=== PATIENT | male | born 1985 | race Caucasian/White ===

== ENCOUNTER 2021-06-18 16:21 | Emergency (ER) | payer SELFPAY ==
[2021-06-18] MEDS ORDERED: Dicyclomine 10 MG CAP ONE ×2 (17:29→17:30)
[2021-06-18] MEDS ORDERED: Diphenoxylate HCl/Atropine Tablet ONE (17:29)
== END 2021-06-18 17:45 | disposition home or self-care (01) ==
LOC: MADERS 16:21
DX: R19.7 Diarrhea, unspecified (principal); I10 Essential (primary) hypertension; F17.210 Nicotine dependence, cigarettes, uncomplicated
CPT/HCPCS: 99283

== ENCOUNTER 2021-06-22 07:54 | Emergency (ER) | payer SELFPAY | END 2021-06-22 08:44 | disposition home or self-care (01) | LOC: MADERS 07:54 | DX: R10.9 Unspecified abdominal pain (principal); I10 Essential (primary) hypertension; F17.290 Nicotine dependence, other tobacco product, uncomplicated; R11.10 Vomiting, unspecified; Z79.899 Other long term (current) drug therapy | CPT/HCPCS: 99283 ==

== ENCOUNTER 2022-08-06 17:21 | Emergency (ER) | payer SELFPAY | END 2022-08-06 18:50 | disposition short-term general hospital (02) | LOC: MADERS 17:21 | DX: S76.919A Strain of unspecified muscles, fascia and tendons at thigh level, unspecified thigh, initial encounter (principal); S30.22XA Contusion of scrotum and testes, initial encounter; I10 Essential (primary) hypertension; X50.0XXA Overexertion from strenuous movement or load, initial encounter | CPT/HCPCS: 99284 ==

== ENCOUNTER 2022-09-14 12:42 | Emergency (ER) | payer BC, SELFPAY ==
[2022-09-14] MEDS ORDERED: Albuterol 200 PUFF (6.7GM INHALER) ONE (13:31)
== END 2022-09-14 14:04 | disposition home or self-care (01) ==
LOC: MADERS 12:42
DX: J06.9 Acute upper respiratory infection, unspecified (principal); Z20.822 Contact with and (suspected) exposure to COVID-19; I10 Essential (primary) hypertension; F17.290 Nicotine dependence, other tobacco product, uncomplicated
CPT/HCPCS: 71046; 87804; 93005; U0003; U0005

== ENCOUNTER 2022-10-18 21:17 | Emergency (ER) | payer BC ==
[2022-10-18] MEDS ORDERED: Ibuprofen 800 MG TAB ONE (21:53)
[2022-10-18] MEDS ORDERED: Ibuprofen 600 MG TAB ONE (21:55)
== END 2022-10-18 21:58 | disposition home or self-care (01) ==
LOC: MADERS 21:17
DX: K64.4 Residual hemorrhoidal skin tags (principal)
CPT/HCPCS: 99283